=== PATIENT | female | born 1975 | race Caucasian/White ===

== ENCOUNTER 2020-04-26 08:50 | Outpatient (CLI) | payer OTHER, SELFPAY ==
--- NOTE | ~2020-04-26 | MR_ITS ---
EXAMINATION: MR brain/brain stem wo con DATE: 04/26/2020 09:42 INDICATION: Unspecified abnormal involuntary movements. TECHNIQUE: Magnetic resonance imaging (MRI) of the brain and brainstem was performed without intraven ous contrast. Sequences included sagittal and axial T1-weighted FSE, axial diffusion-weighted FS EPI, axial T2*-weighted GRE, axial T2-weighted FLAIR Propeller, and axial T2-weighted Propeller. Apparent diffusion coefficient (ADC) maps were created. COMPARISON: Head CT 05/26/2006 FINDINGS: There is no intracranial hemorrhage, acute infarction, or abnormal intracranial mass lesion . There are scattered areas of nonspecific increased T2-weighted signal intensity in the cerebral whi te matter, which is within normal limits for the patient's age. The ventricles are normal in size. Th ere is mild mucosal thickening in the ethmoid sinuses. The orbits are normal. There is a trace right mastoid effusion. IMPRESSION: 1. Normal aging brain. Reviewed, dictated and finalized at location A. [employer] CUSTODIAN IMPRESSION: 1. Normal aging brain.
--- NOTE | 2020-04-28 09:07 | WPDNEUROLOGY ---
Neurology EEG Report General Information Date of Study: 04/26/20 TEST eeg DIAGNOSIS abnormal involuntary movements CONDITION OF RECORDING awake drowsy and sleep with constant eye movements throughout the tracing EEG NUMBER [id number] CLINICAL HISTORY patient reported for the last couple of years she has been experiencing involuntary jerking of random parts of her body and seems to be increasing in frequency. EEG DESCRIPTION basic resting occipital frequency consists of low to medium voltage 8 to 10 hertz per 2nd alpha admixed with waxing and waning beta activity. during drowsiness . Bilateral symmetrical sleep activity seen with symmetrical sleep spindles. Photic stimulation produced poor Drive.. hyperventilation not done. Non paroxysmal nonfocal nonlateralizing. IMPRESSION No significant abnormalities noted
== END 2020-04-26 08:51 | disposition home or self-care (01) ==
PROVIDERS: PCP Family Medicine; Visit Provider Psychiatry & Neurology Neurology
DX: R25.9 Unspecified abnormal involuntary movements (principal)
CPT/HCPCS: 70551; 95816

== ENCOUNTER 2023-10-30 15:44 | Outpatient (CLI) | payer OTHER, SELFPAY ==
--- NOTE | ~2023-10-30 | XR_ITS ---
EXAM: XR hand RT min 3V DATE: 10/30/2023 15:59 HISTORY: RIGHT HAND PAIN, ATTENTION TO THUMB . COMPARISON: None available. FINDINGS: Normal mineralization. No fracture or dislocation. No lytic or blastic lesion. Joint space s are maintained. No erosion or periosteal change. Soft tissues within normal limits. IMPRESSION: Normal right hand radiograph findings. Reviewed, dictated and finalized at location K.
== END 2023-10-30 15:45 | disposition home or self-care (01) ==
LOC: ANHIMG 15:49
PROVIDERS: PCP Family Medicine; Visit Provider Registered Nurse
DX: M79.641 Pain in right hand (principal)
CPT/HCPCS: 73130

== ENCOUNTER 2025-03-19 10:33 | Outpatient (CLI) | payer OTHER, SELFPAY ==
--- OUTSIDE RECORDS SUMMARY | 2024-11-05 05:00 | XMS_ITS ---
Author Organization [facility] Address [address] [place] [address] Care Team Providers Care Pattern Molder Name Role Phone Idris Katz Primary Care Provider Weston Dietz [phone] REASON FOR VISIT AIMS test Medications Medication SIG (Take, Route, Frequency, Duration) Notes Start Date End Date Status FLUoxetine HCl 20 MG 1 capsule in the ev ening Orally Once a day; Duration: 90 days Active clomiPRAMINE HCl 50 MG 1 capsule at bedt gustavo Orally Once a day; Duration: 90 days Active buPROPion HCl ER (SR) 200 MG TAKE 1 TABLET BY MOUTH TWICE A DAY; Duration: 90 days Active lamoTRIgine 150 MG 1 tablet Orally twic e a day; Duration: 90 days Active Zolpidem Tartrate 10 MG 0.5 - 1 tablet a t bedtime as needed Orally Once a day. Do NOT take with alcohol or opioids.; Duration: 30 days 10/21/2024 Active FLUoxetine HCl 40 MG 1 capsule in the mo rning Orally Once a day; Duration: 90 days Active LORazepam 0.5 MG 1 tablet Orally Once a day; Duration: 30 days As needed for severe anxiety 10/21/2024 Active Austedo XR 24 MG 1 tablet Orally Once a day; Duration: 30 days 10/21/2024 Active Encounters Encounter Location Date Provider Diagnosis [address] [place] [address] 11/05/2024 Weston Dietz Plan Of Treatment No Information Progress Notes * Kamala PIZARRO:1975 (49 yo F)Acc No.[id number]:11/05/2024 UNLOCKED PROGRESS NOTE Progress Note Patient: Ela BLACK Provider: Dread Dietz DNP, PMHNP-BC :1975 A ge:49 Y S ex:Female Date:11/05/2024 Address:[address] [place], [place] [id number] Pcp:Idris Katz Subjective: * Chief Complaints: * 1 . AIMS test. * HPI: A bnormal Involuntary Movement Scale: Facial and Oral Movements M uscles of Facial Expression?0- None, L ips and Perioral Area 0 - None, J aw 0 - None, T ongue 0 - None. E xtremity Movements U pper (arms, wrists, hands, fingers) 0 - None, L ower (legs, knees, ankles, toes) 0 - None. T runk Movements N sophie, Shoulders and hips 0 - None.?Global Judgement S everity of abnormal movements overall 0 - None, I ncapacitation due to abnormal movements 0 - None, P atient's awareness of abnormal movements 0 - No Awareness. D ental Status C urrent problems with teeth and/or dentures N o, A re dentures usually worn? N o, E ndentia N o, D o movements disappear with sleep? N o.? * Medical History: * Medications: T aking buPROPion HCl ER (SR) 200 MG Tablet Extended Release 12 Hour TAKE 1 TABLET BY MOUTH TWICE A DAY , Taking lamoTRIgine 150 MG Tablet 1 tablet Orally twice a day , Taking clomiPRAMINE HCl 50 MG Capsule 1 capsule at bedtime Orally Once a day , Taking FLUoxetine HCl 20 MG Capsule 1 capsule in the evening Orally Once a day , Taking FLUoxetine HCl 40 MG Capsule 1 capsule in the morning Orally Once a day , Taking LORazepam 0.5 MG Tablet 1 tablet Orally Once a day As needed for severe anxiety, Taking Austedo XR 24 MG Tablet Extended Release 24 Hour 1 tablet Orally Once a day , Taking Zolpidem Tartrate 10 MG Tablet 0.5 - 1 tablet at bedtime as needed Orally Once a day. Do NOT take with alcohol or opioids. Objective: * Vitals: Assessment: Plan: * Treatment: * * Electronic signature of Scott Dietz , CLINICAL EDUCATION ASSISTANT, [id number] on 03/19/2025 at 06:44 PM MOLD HOISTER Sign off status: Pending * Provider: Dread Dietz DNP, PMHNP- Date: 0 11/05/2024 Generated for Printi ng/Faxing/eTransmitting on: 1 05/19/2024 06:44 PM MOLD HOISTER History and Physical Notes * HPI (History of Present Illness) Category Sub-Category Detail Notes Category Not es Abnormal Involuntary Movement Scale Facial and Oral Movements Muscles of Facial Expression: 0- None Lips and Perioral Area: 0- None Jaw: 0- None Tongue: 0- None Extremity Movements Upper (arms, wrists, hands, fingers): 0- None Lower (legs, knees, ankles, toes): 0- No ne Trunk Movements Neck, Shoulders and hips: 0- Non e Global Judgement Severity of abnormal movements overall: 0- None Incapacitation due to abnormal movements : 0- None Patient's awareness of abnormal movement s: 0- No Awareness Dental Status Current problems with teeth and/ or dentures: No Are dentures usually worn?: No Endentia: No Do movements disappear with sleep?: No Subjective Experience
--- NOTE | ~2025-03-19 | MM_ITS ---
EXAMINATION: MM screening frantz BI w lesli HISTORY: Screening TECHNIQUE: Craniocaudal and mediolateral oblique 3-D tomosynthesis images were obtained and synthetic 2-D images were generated. CAD analysis was submitted and interpreted. COMPARISON: 09/11/2012 BREAST PARENCHYMAL COMPOSITION: There are scattered areas of fibroglandular density. FINDINGS: There is no evidence of suspicious mass, calcification, or architectural distortion to suggest malignancy in either breast. IMPRESSION: 1. No mammographic evidence of malignancy. 2. Recommend routine screening mammography in one year. BI-RADS Category 1: Negative Reviewed, dictated and finalized at location B. [employer]
--- OUTSIDE RECORDS SUMMARY | 2025-03-19 18:44 | XMS_ITS | Patient Health Record ---
Author Organization [facility] Address [address] [facility] [address] [facility] [address] [place] [address] Care Team Providers Care Postbed Stitcher Name Role Phone Ester Casey Unavailable [phone] Reason For Referral No Information Medications Medication SIG (Take, Route, Frequency, Duration) Notes Start Date End Date Status busPIRone HCl 30 MG Tablet Oral Active Wellbutrin SR 150 MG Tablet Extended Release 12 Hour Oral Act gerard Zolpidem Tartrate 5 MG Tablet Oral Active Divalproex Sodium 500 MG Tablet Delayed Release Oral Activ e hydrOXYzine HCl 50 MG Tablet Oral Active Plan Of Treatment No Information Insurance Providers Payer Name Payer Address Payer Phone Subscriber Number Group Number Insured Name Patient Relationship to Insured Coverage Start Date Coverage End Date [facility] [address] [facility] [address] [place] [phone] [id number] GEE GARCIA Self - patient is the insured
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
--- OUTSIDE RECORDS SUMMARY | 2025-03-19 18:44 | XMS_ITS | Clinical Summary ---
Author Organization [facility] Address [address] [place] [address] Care Team Providers Care Streetcar Dispatcher Name Role Phone Chaim Burrell MD Primary Care Provider Source Comments [facility],non-owned Affiliates and Associated Physician Practices is amultiple site organization consisting of ambulatory clinics and hospital sitesin [place] and [place]. This disclosure is being madepursuant to the Care Everywhere program and may not contain all information available regarding this patient. Last updated 18.[facility] Allergies Active Allergy Reactions Criticality Noted Date Comments Clonazepam Urticaria Medium 05/26/2017 Medications * Be aware that medications may not be up to date on this document. Alwaysverify current medications with the patient. fluvoxaMINE (LUVOX) 100 MG tablet Take 100 mg by mouth 3 times daily Active divalproex ER 24hr (DEPAKOTE ER) 500 MG tablet Take 500 mg by mouth 2 times daily Active baclofen (LIORESAL) 10 MG tablet Take 10 mg by mouth once daily May cause drowsiness. Active busPIRone (BUSPAR) 15 MG tablet Take 15 mg by mouth 3 times daily Active zolpidem (AMBIEN) 5 MG tablet Take 5 mg by mouth nightly as needed for Insomnia Active HYDROcodone-catherine taminophen (NORCO) 10-325 MG tablet Take 1 tablet by mouth 3 times daily Active spironolactone (ALDACTONE) 25 MG/5ML SUSP suspension Take by mouth once daily Active Active Problems No known active problems Social History Tobacco Use Types Packs/Day Years Used Date Smoking Tobacco: Passive Smo ke Exposure - Never Smoker Smokeless Tobacco: Never Comments Unknown Sex and Gender Information Value Date Recorded Sex Assigned at Not on file Legal Sex Female 7:22 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[employer]S ADVISOR Gender Identity Not on file Sexual Orientation Not on file Last Filed Vital Signs Vital Sign Reading Time Taken Comments Blood Pressure 116/82 06/06/2017 9:10 AM PARTS ADVISOR Pulse 114 06/06/2017 9:10 AM PARTS ADVISOR Temperature 37 C (98.6 F) 06/06/2017 9:10 AM PARTS ADVISOR Respiratory Rate 16 05/26/2017 11:15 AM PARTS ADVISOR Oxygen Saturation 97% 06/06/2017 9:10 AM PARTS ADVISOR Inhaled Oxygen Concentration - - Weight 79.8 kg (176 lb) 10/28/2018 2:01 PM CDT Height 165.1 cm (5' 5) 10/28/2018 2:01 PM CDT Body Mass Index 29.29 10/28/2018 2:01 PM CDT Plan of Treatment Health Maintenance Due Date Last Done Comments COLOGUARD (AGES 45-75) - COL ON CA SCREENING 1976 COLON MONITORING 1976 COLONOSCOPY - COLON CA SCREENING 1976 CT COLONOGRAPHY - COLON CA SCREENING 1976 Colorectal Cancer Screening 1976 FIT - COLON CA SCREENING 1976 FLEX SIG - COLON CA SCREENING 1976 LIPID TESTING 1976 MAMMOGRAM 1976 HIV SCREENING 09/11/1991 HEPATITIS C SCREENING 09/06/1994 DTAP/TDAP/TD VACCINES (1 - Tdap) 09/11/1995 HEPATITIS B VACCINE (1 of 3 - 19+ 3-dose series) 09/11/1995 SCREENING FOR DIABETES 10/28/2018 DEPRESSION SCREENING 05/14/2024 COVID-19 VACCINE (1 - 2023-2 5 season) 2025 INFLUENZA VACCINE (#1) 2025 ZOSTER VACCINE (1 of 2) 2026 HIB VACCINE Aged Out No longer eligi ble based on patient's age to complete this topic HPV VACCINE Aged Out No longer eligi ble based on patient's age to complete this topic MENINGOCOCCAL (Group B) VACC INE SHARED DECISION-MAKING Aged Out No longer eligibl e based on patient's age to complete this topic MENINGOCOCCAL GROUPS A/C/Y/W VACCINE Aged Out No longer eligible b ased on patient's age to complete this topic PNEUMOCOCCAL VACCINE Aged Out No long er eligible based on patient's age to complete this topic Insurance [facility] Care Teams Streetcar Dispatcher Relationship Specialty Start Date End Date Chaim Burrell MD [address] [place] [address] PCP - General 09/23/18
== END 2025-03-19 10:34 | disposition home or self-care (01) ==
LOC: ANHFOHIMG 10:36
PROVIDERS: PCP Family Medicine; Visit Provider Nurse Practitioner Family
DX: Z12.31 Encounter for screening mammogram for malignant neoplasm of breast (principal)
CPT/HCPCS: 77063; 77067